=== PATIENT | female | born 1960 | race African-American/Black ===

== ENCOUNTER 2021-04-21 12:14 | Outpatient (CLI) | payer MEDICARE, MEDICAID | END 2021-04-21 12:15 | disposition home or self-care (01) | LOC: CSHULT 12:14 | PROVIDERS: ATTEND Urology | DX: N20.0 Calculus of kidney (principal); N18.9 Chronic kidney disease, unspecified; N28.1 Cyst of kidney, acquired | CPT/HCPCS: 74178; 76770 ==